=== PATIENT | male | born 1985 ===

== ENCOUNTER 2018-03-25 15:32 | Emergency (ER) | payer SELFPAY ==
[2018-03-25 15:35] VITALS: BMI 26.6
[2018-03-25 15:39] VITALS: RESP 18
--- NOTE | 2018-03-25 16:12 | C.PDOC ---
History Of Present Illness 32 y/o male presents with complaints of pain to the low posterior neck and upper back pain for 3 months. States was seen by a doctor and instructed to take Ibuprofen and Tylenol, without relief. Also tried taking Naproxen with no improvement. Patient then saw chiropractor, had manipulation, but still complains of persistent pain. Today patient had an MRI done here, and pain worsened, prompting him to come to the ER. He denies any new weakness, numbness, or other focal deficit. Time Seen by Provider: 03/25/18 16:04 Chief Complaint (Nursing): Back Pain History Per: Patient History/Exam Limitations: no limitations Onset/Duration Of Symptoms: Days Current Symptoms Are (Timing): Still Present Past Medical History Reviewed: Historical Data, Nursing Documentation, Vital Signs Vital Signs: Last Vital Signs Temp 97.7 F 03/25/18 15:35 Pulse 81 03/25/18 15:35 Resp 18 03/25/18 15:35 BP 130/89 03/25/18 15:35 Pulse Ox 99 03/25/18 15:35 Surgical History: Appendectomy Family History: States: No Known Family Hx - Social History Hx Alcohol Use: No Hx Substance Use: No - Immunization History Hx Tetanus Toxoid Vaccination: No Hx Influenza Vaccination: No Hx Pneumococcal Vaccination: No Review Of Systems Except As Marked, All Systems Reviewed And Found Negative. Constitutional: Negative for: Fever, Chills Cardiovascular: Negative for: Chest Pain Respiratory: Negative for: Shortness of Breath Gastrointestinal: Negative for: Abdominal Pain Musculoskeletal: Positive for: Neck Pain, Back Pain Neurological: Negative for: Weakness, Numbness, Incoordination Physical Exam - Physical Exam Appears: Non-toxic, No Acute Distress, Other (Appears uncomfortable) Skin: Normal Color, Warm, Dry Head: Atraumatic, Normacephalic Eye(s): bilateral: Normal Inspection, PERRL, EOMI Oral Mucosa: Moist Neck: Normal ROM Chest: Symmetrical Cardiovascular: Rhythm Regular, No Murmur Respiratory: Normal Breath Sounds, No Accessory Muscle Use Back: No Vertebral Tenderness, Paraspinal Tenderness (right parathoracic tenderness, near the scapula, with + spasm), Other (Pain reproduced with contralateral head movement) Extremity: Bilateral: Atraumatic, Normal Color And Temperature, Normal ROM Neurological/Psych: Oriented x3, Normal Speech, Normal Motor, Normal Sensation ED Course And Treatment O2 Sat by Pulse Oximetry: 99 (RA) Pulse Ox Interpretation: Normal Progress Note: Treated patient with IM Toradol, PO Valium, and Lidoderm patch in the ER. On reevaluation patient reports pain is minimally improved. Given rx to go home. Reassessment Condition: Improved Disposition - Disposition Disposition: HOME/ ROUTINE Disposition Time: 17:02 Condition: STABLE Additional Instructions: Follow up with PMD within 1-2 days. Return to ED if feel worse. Prescriptions: Lidocaine 4% [Lidocaine 4% 50 ml Topical (or)] 1 appl TOP QID #1 bottle traMADol [Ultram] 50 mg PO Q6 #20 tab diaZEpam [Valium] 2 mg PO TID #15 tab Instructions: Muscle and Bone Pain (DC) Forms: [employer] (Icelandic) Print Language: KIS[place]HILI - Clinical Impression Clinical Impression: Musculoskeletal pain - PA / FABRICATION MANAGER / Resident Statement MD/DO has reviewed & agrees with the documentation as recorded. - Scribe Statement The provider has reviewed the documentation as recorded by the Scribalex Sawant All medical record entries made by the Scribe were at my direction and personally dictated by me. I have reviewed the chart and agree that the record accurately reflects my personal performance of the history, physical exam, medical decision making, and the department course for this patient. I have also personally directed, reviewed, and agree with the discharge instructions and disposition.
[2018-03-25] MEDS ORDERED: Lidocaine 5% Patch TD STA (16:13)
[2018-03-25] MEDS ORDERED: Lidocaine 5% Patch TD ONE (16:35)
[2018-03-25 17:18] VITALS: BP 109/72; PULSE 72; TEMP 98.4
[2018-03-25 18:26] VITALS: O2SAT 99
== END 2018-03-25 17:19 | disposition home or self-care (01) ==
LOC: C.ER 15:32
DX: M79.18 Myalgia, other site (principal)
CPT/HCPCS: 96372; 99284; J1885

== ENCOUNTER 2018-04-19 15:17 | Outpatient (CLI) | payer SELFPAY | END 2018-04-19 15:18 | disposition home or self-care (01) | LOC: C.MRIC 15:17 | DX: M54.6 Pain in thoracic spine (principal) ==

== ENCOUNTER 2018-05-07 13:18 | Emergency (ER) | payer SELFPAY ==
[2018-05-07 13:18] VITALS: BMI 26.6
[2018-05-07 13:39] VITALS: BP 127/78; PULSE 66; TEMP 97.7; O2SAT 97
--- NOTE | 2018-05-07 14:21 | C.PDOC ---
History Of Present Illness 33 year old male presents to the emergency department with complaints of diffuse pain for the last five months. Patient states that he has pain and muscle spasms to his lumbar area s/p being diagnosed with herniated disks. . Patient reports spasms to his arms, leg, and lower back area. Patient states he feels as if he has lost strength in his extremities for the last 20 days, but states that the symptoms have been worse for the last three days. Patient states that he is on Tramadol and Valium for pain but has not taken the Valium in a while. He denies bowel and bladder incontinence, fever, chills, nausea, vomiting. 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) Onset/Duration Of Symptoms: Worse Since (3 days), Other (5 months) Current Symptoms Are (Timing): Worse Quality Of Discomfort: "Pain", Other (spasms, loss of strength) Previous Symptoms: Back Pain Past Medical History Reviewed: Historical Data, Nursing Documentation, Vital Signs Vital Signs: Last Vital Signs Temp 97.7 F 05/07/18 13:35 Pulse 66 05/07/18 13:35 Resp 16 05/07/18 13:35 BP 127/78 05/07/18 13:35 Pulse Ox 97 05/07/18 13:35 - Medical History PMH: No Chronic Diseases Surgical History: Appendectomy Family History: States: No Known Family Hx - Social History Hx Alcohol Use: No Hx Substance Use: No - Immunization History Hx Tetanus Toxoid Vaccination: No Hx Influenza Vaccination: No Hx Pneumococcal Vaccination: No Review Of Systems Constitutional: Negative for: Fever, Chills Gastrointestinal: Negative for: Nausea, Vomiting, Abdominal Pain, Diarrhea Genitourinary: Negative for: Dysuria, Frequency, Incontinence Musculoskeletal: Positive for: Arm Pain, Back Pain, Leg Pain Physical Exam - Physical Exam Appears: Non-toxic, No Acute Distress Skin: Normal Color, Warm, Dry Head: Atraumatic, Normacephalic Eye(s): bilateral: Normal Inspection, PERRL, EOMI Neck: Normal, Supple Chest: Symmetrical, No Tenderness Cardiovascular: Rhythm Regular, No Murmur Respiratory: Normal Breath Sounds, No Rales, No Rhonchi, No Wheezing Gastrointestinal/Abdominal: Soft, No Tenderness Extremity: Normal ROM (all extremities), No Tenderness, No Swelling, Other (right thoracic muscle spasm) Pulses: Left Dorsalis Pedis: Normal, Right Dorsalis Pedis: Normal Neurological/Psych: Oriented x3, Normal Speech, Normal Cognition, Normal Motor (equal strengths bilaterally), Normal Sensation ED Course And Treatment - Laboratory Results Result Diagrams: 05/07/18 14:30 O2 Sat by Pulse Oximetry: 97 (RA) Pulse Ox Interpretation: Normal Medical Decision Making Medical Decision Making: Plan: CMP Magnesium Phosphorus 1500 pt's old chart and mri reviewed; only 1 disk L4-5 with herniation, rest in thoracic and lumbar spine ok. labs reviewed, pt mildly dehydrated, and advised to drink more water and to f/u in [facility] next [facility]. Will give rx for muscle relaxant for spasm in thoracic area Disposition Counseled Patient/Family Regarding: Studies Performed, Diagnosis, Need For Followup, Rx Given - Disposition Referrals: [facility] [Outside] Disposition: HOME/ ROUTINE Disposition Time: 15:07 Condition: GOOD Additional Instructions: Kary ms lquidos, debe tener 6-8 8 oz vasos de agua por da. [place] ibupforen para el dolor; el relajante muscular se puede miguel 3 veces al da (cada 8 horas), say le da sueo, por lo que no debe conducir ni operar maquinaria cuando lo shara. Lu[place] un seguimiento en la clnica mdica la prxima semana, llame el lun para ryan ben. Drink increased fluids, should be 6-8 8oz glasses of water per day. Take ibupforen for pain; muscle relaxant can be taken 3 times a day (every 8 hours) but makes you sleepy so no driving or operating machinery when taking it. Follow up in medical clinic next week, call on Wednesday for an appointment. Prescriptions: Cyclobenzaprine [Cyclobenzaprine HCl] 10 mg PO Q8 #9 tab Ibuprofen [Motrin] 600 mg PO TID #30 tab Instructions: Muscle Spasms (DC) Forms: [employer] (Andorran), Gen Discharge Inst Cypriot, [employer] (Cypriot) Print Language: GREENLANDIC - Clinical Impression Clinical Impression: Muscle spasm, Dehydration, mild - PA / SANITARY ENGINEER / Resident Statement MD/DO has reviewed & agrees with the documentation as recorded. - Scribe Statement The provider has reviewed the documentation as recorded by the Scribe (Isaac Barbour) All medical record entries made by the Scribe were at my direction and personally dictated by me. I have reviewed the chart and agree that the record accurately reflects my personal performance of the history, physical exam, medical decision making, and the department course for this patient. I have also personally directed, reviewed, and agree with the discharge instructions and disposition.
[2018-05-07 14:50] LABS: ALBUMIN 4.6 g/dL (3.5-5.0); ALT/SGPT 27 U/L (21-72); AST/SGOT 21 U/L (17-59); BLOOD UREA NITROGEN 18 mg/dL (9-20); CALCIUM 8.5 mg/dl (8.6-10.4); GFR NON-AFRICAN AMERICAN > 60
[2018-05-07 15:24] VITALS: RESP 20
== END 2018-05-07 15:23 | disposition home or self-care (01) ==
LOC: C.ER 13:18
DX: E86.0 Dehydration (principal); M62.830 Muscle spasm of back